=== PATIENT | female | born 1955 | race Caucasian/White ===

== ENCOUNTER → 2020-06-22 | Outpatient (CLI) | payer OTHER ==
--- NOTE | 2020-06-22 14:59 | REP ---
INDICATION: LEFT ELBOW PAIN. COMPARISON: None. TECHNIQUE: AP and lateral views of the left elbow FINDINGS: Degenerative changes are appreciated including small fractured osteophyte of the coronoid process. No obvious acute fracture. Anterior and posterior fat pads are normal in position and without obvious hemarthrosis/effusion. IMPRESSION: Age-related arthritic changes <Electronically signed by Pool Florez > 06/22/20 [id number]
== END ==
LOC: M SOG 09:22
PROVIDERS: ATTEND Orthopaedic Surgery Sports Medicine
DX: M19.022 Primary osteoarthritis, left elbow (principal); M70.22 Olecranon bursitis, left elbow

== ENCOUNTER → 2020-07-07 | Outpatient (CLI) | payer OTHER ==
--- NOTE | 2020-07-07 17:21 | REP ---
INDICATION: OLECRANON BURSITIS, LT ELBOW. COMPARISON: Comparison elbow radiographs are from June 22, 2020.. TECHNIQUE: Axial, coronal, and sagittal imaging planes utilized. T1 and T2 weighted scans are included with without fat saturation in the usual fashion. Skin markers are affixed to the skin at the site of the area of interest. FINDINGS: There is an olecranon bursal cyst or fluid collection seen measuring 1.3 x 2.2 x 2.2 cm. There is some adjacent edema in the subcutaneous fat layer. Cortical and medullary bone signal intensity are normal in and adjacent to the elbow. There is no significant elbow joint effusion seen. No bony destructive lesion is appreciated. There is mild T2 hyperintensity adjacent to the lateral epicondyle question mild lateral epicondylitis. Collateral ligaments appear intact. No articular cartilage lesion is seen. The radiograph shows some coronoid process and olecranon process spurring. This is less conspicuous on MR imaging. The triceps tendon appears intact. There is no evidence of biceps or brachialis tendon disruption. Skeletal muscle signal intensity is normal on T1 and T2 weighted scans. IMPRESSION: 2.2 cm olecranon bursal fluid collection. <Electronically signed by Daniel Palma > 07/07/20 [id number]
== END ==
LOC: M RAD 13:28
PROVIDERS: ATTEND Orthopaedic Surgery Sports Medicine
DX: M70.22 Olecranon bursitis, left elbow (principal)

== ENCOUNTER → 2020-08-07 | Outpatient (CLI) | payer MEDICARE, OTHER ==
[~2020-08-07] MED LIST: ADV500INH INH; ALBU8.5H INH; B-12100010 PO; D31000TA2 PO; LOSA100T5 PO; MAGN400T3 PO; MONT10TA10 PO; TRIA37.5 PO
== END ==
LOC: M LABSMTC 11:14
PROVIDERS: ATTEND Anesthesiology
DX: Z01.812 Encounter for preprocedural laboratory examination (principal); Z20.822 Contact with and (suspected) exposure to COVID-19

== ENCOUNTER 2020-08-12 06:12 | Day surgery (SDC) | payer MEDICARE, OTHER ==
[~2020-08-12] VITALS: Ht 167.6 cm; Wt 116.6 kg
[2020-08-12] MEDS ORDERED: ceFAZolin SOD 2 GM in IV 1 EA IV ONE (07:00)
[2020-08-12] MEDS ORDERED: LR 1,000 ML IV ONE (07:00)
[2020-08-12] MEDS ORDERED: ACETAMINOPHEN 1000MG 100ML IV BTL (OFIRMEV) (J0131 PER 10MG) As Ordered ONE (07:13)
[2020-08-12] MEDS ORDERED: propofoL 200 MG/20 ML VIAL As Ordered ONE (07:13)
[2020-08-12] MEDS ORDERED: KETAMINE HCL 200 MG/20 ML VIAL As Ordered ONE (07:13)
[2020-08-12] MEDS ORDERED: LIDOCAINE 2% 100MG/5ML SDV (FOR ANES.) As Ordered ONE ×2 (07:13→07:37)
[2020-08-12] MEDS ORDERED: MIDAZOLAM INJ 2MG/2ML VIAL (J2250 PER 1MG) As Ordered ONE (07:13)
[2020-08-12] MEDS ORDERED: fentaNYL 100 MCG/2 ML INJECTION (J3010) As Ordered ONE (07:14)
[2020-08-12] MEDS ORDERED: ONDANSETRON 4MG/2ML VIAL As Ordered ONE (07:16)
[2020-08-12] MEDS ORDERED: dexameTHASONE 4 MG/ML 1ML VIAL (J1100 PER 1MG) As Ordered ONE (07:16)
[2020-08-12] MEDS ORDERED: ROCURONIUM BROMIDE 50 MG/5 ML VIAL As Ordered ONE (07:36)
[2020-08-12] MEDS ORDERED: BUPIVACAINE/EPIN 0.25% 30 ML VIAL As Ordered ONE ×2 (08:00→08:04)
[2020-08-12] MEDS ORDERED: SUGAMMADEX SODIUM 500 MG/5 ML VIAL (BRIDION) As Ordered ONE (08:14)
--- NOTE | 2020-08-12 08:46 | ROOPDOC ---
[facility] Report Of Operation Report of Operation DATE OF PROCEDURE: 08/12/20 PREPROCEDURE DIAGNOSES: Left elbow olecranon bursitis. POSTPROCEDURE DIAGNOSES: Left elbow olecranon bursitis. PROCEDURE: Left elbow olecranon bursectomy. SURGEON: Dr. Young Grimaldo MD FRUIT DUMPER: ANESTHESIA: Dr. Sorenson general anesthetic. ESTIMATED BLOOD LOSS: Approximately 10 mL. COMPLICATIONS: None. REMARKS: . PROCEDURE NOTE: This 65-year-old female had signs and symptoms and MRI findings consistent with left olecranon bursitis. She wished to have this removed. We discussed the nonsurgical and surgical options for her. She wished to go ahead. I marked the left upper extremity. She had no further questions.. DESCRIPTION OF PROCEDURE: The patient was brought to the operating theater. They were placed supine on the operating room table. Tourniquet was applied to the left arm and appropriately padded. All bony prominences appropriately padded. 2 g of IV Ancef was administered prior to the start of the case. The limb was prepped and draped in the usual sterile fashion with chlorhexidine prep solution allowing over 3 minutes drying time prior to draping. Preoperative timeout was performed to confirm the site the patient and the surgery. I began by moving the limb over top of the body. Inflated the tourniquet to 250 mmHg. Began by making a standard longitudinal incision overlying the olecranon bursa. Carried the dissection down through skin and subcutaneous tissue achieving meticulous hemostasis. I excised the bursa sac without violating the interior. I removed this all in 1 piece. The diameter of the white circular lesion was approximately 2.5 cm. This was sent to pathology. Tourniquet was taken down and wound thoroughly irrigated. Bleeding meticulous hemostasis. Subcutaneous tissues closed with 2-0 Vicryl sutures and skin with 3-0 Monocryl. 10 mL of quarter percent Marcaine with epinephrine was instilled in and around the subcutaneous tissues. Steri-Strips 4 x 8 gauze with abdominal pad dressings were then placed over top and wrapped with 4 inch Samuel bandage loosely. Patient was woken up from the general anesthetic transferred off the operating room table and taken to postanesthetic care unit in stable condition. All sponge needle, instrument counts are correct. No complications. Estimated blood loss 10 mL. Plan the patient is to be range of motion as tolerated keep the wound clean and dry. Discharge today per day surgery criteria and follow up in the office in 2 weeks' time. Prescription has been sent to the pharmacy of choice electronically. Postoperative wound instructions were given. It was recommended to keep the wound clean and dry. Dressing changes as needed. It was reinforced with the patient that they should call us or be seen immedi ately for redness, drainage, or fever. Risk factors for harms from taking opioid medications discussed and assessed including but not limited to personal or family history of substance use disorder, anxiety or depression, , age 65 or older, COPD or other underlying respiratory conditions, and renal or hepatic insufficiency. Discussed with patient concerns and determined any harms they may experience or be currently experiencing such as nausea or constipation, feeling sedated or confused, breathing interruptions during sleep, or taking or craving more opioids than prescribed or difficulty controlling use (addiction). Discussed early warning signs of overdose including confusion, sedation, slurred speech, abnormal gait. YOUNG GRIMALDO MD Aug 12, 2020 08:46
[2020-08-12] MEDS ORDERED: METOCLOPRAMIDE INJ 10MG/2ML VIAL (J2765 PER 1) IV PRN (09:00)
[2020-08-12] MEDS ORDERED: ONDANSETRON 4MG/2ML VIAL IV PRN ×2 (09:00→09:05)
[2020-08-12] MEDS ORDERED: oxyCODONE 5MG TAB PO PRN (09:00)
[2020-08-12] MEDS ORDERED: fentaNYL 100 MCG/2 ML INJECTION (J3010) IV PRN (09:00)
[2020-08-12] MEDS ORDERED: LR 1,000 ML IV SCH ×2 (09:00→09:05)
[2020-08-12] MEDS ORDERED: MORPHINE 2 MG/ML 1ML VIAL (J2270) IV PRN (09:05)
[2020-08-12] MEDS ORDERED: PERCOCET 5MG/325MG TAB PO PRN (09:05)
[2020-08-12] MEDS ORDERED: ACETAMINOPHEN TAB 650MG DOSE (2X325MG) PO PRN (09:05)
[2020-08-12 10:05] VITALS: BP 137/78
[2020-08-12] MEDS ORDERED: LACRILUBE (AKWA TEARS) OPHTH OINT 3.5 GM As Ordered ONE (13:08)
== END 2020-08-12 10:23 | disposition home or self-care (01) ==
LOC: M SDC 06:12
PROVIDERS: ATTEND Orthopaedic Surgery Sports Medicine
DX: M70.22 Olecranon bursitis, left elbow (principal); I10 Essential (primary) hypertension; J45.909 Unspecified asthma, uncomplicated; Z79.51 Long term (current) use of inhaled steroids; Z79.899 Other long term (current) drug therapy
CPT/HCPCS: 24105; 88304; J0131; J0690; J1100; J2250; J2405; J3010